=== PATIENT | male | born 1980 | race African-American/Black ===

== ENCOUNTER 2020-09-21 21:30 | Emergency (ER) | payer SELFPAY ==
[~2020-09-21] VITALS: Ht 190.5 cm; Wt 69.0 kg
[~2020-09-21 21:30] MED LIST: ARIP15TA3 PO; ARIP2TAB2 PO; ESCI10TA10 PO; RISP0.2518 PO; RISP2TAB35 PO; SERT50TA PO; SERT50TA28 PO
--- NOTE | 2020-09-21 22:00 | NUR ---
patient reporting "body fevers and sometimes head fevers" but states he has not taken his temperature at home with a thermometer and reports "my skin just feels hot sometimes so i take a cold shower". patient also reports "i drink heavily every single day, like a lot, like 3 bottle of vodka a day and i think i have a large JORGE A". RN questioned what he meant by this statement and he reports "i think i have a large blood alcohol content". patient reports last drink was 2 days ago. patient has no CIWA scoring criteria. student MD to bedside. call juana in reach. safety maintained.
--- NOTE | 2020-09-21 22:59 | NUR ---
patient resting in bed in NAD. call arias in reach. pending lab work. will continue to monitor.
[2020-09-21 23:03] LABS: ALANINE AMINOTRANSFERASE 39 U/L (12-78); ALBUMIN 3.7 g/dL (3.4-5.0); ANION GAP 9 mmol/L (5-15); CALCIUM 8.5 mg/dL (8.5-10.1); CHLORIDE 103 mmol/L (98-107); CREATININE 0.82 mg/dL (0.7-1.3)
[2020-09-21 23:04] LABS: ALKALINE PHOSPHATASE 61 U/L (45-117); BASOPHILS % (AUTO) 1 % (0-1); BILIRUBIN,TOTAL 1.1 mg/dL (0.2-1.0); EOSINOPHILS % (AUTO) 1 % (1-7); LYMPHOCYTES % (AUTO) 28 % (22-44); MEAN CORPUSCULAR HEMOGLOBIN 33.1 pg (27.5-34.5); MEAN CORPUSCULAR HGB CONC 34.8 g/dL (33.2-36.2); MEAN PLATELET VOLUME 7.6 fL (7.4-10.4); MONOCYTES % (AUTO) 10 % (2-9); NEUTROPHILS % (AUTO) 60 % (42-75); PLATELET COUNT 196 x10^3/uL (130-400); RED BLOOD COUNT 4.58 x10^6/uL (4.38-5.82); RED CELL DISTRIBUTION WIDTH 13.5 % (9.4-14.8); TOTAL PROTEIN 7.1 g/dL (6.4-8.2)
[2020-09-21 23:05] LABS: MD NO
--- NOTE | 2020-09-21 23:28 | NUR ---
discharge instructions reviewed with patient. no further questions. addiction and behavioral facilities info resource sheets provided to patient and reviewed. no IV placed during ER visit. all personal belongings with patient on dc. steady gait to lobby
[2020-09-21 23:29] VITALS: BP 139/81
== END 2020-09-21 23:35 | disposition home or self-care (01) ==
LOC: ED 23:31
DX: R10.84 Generalized abdominal pain (principal); R50.9 Fever, unspecified; R53.83 Other fatigue; F17.210 Nicotine dependence, cigarettes, uncomplicated
CPT/HCPCS: 36415; 80053; 80320; 83690; 85025; 99283; 99406; G0480

== ENCOUNTER 2020-11-08 04:25 | Emergency (ER) | payer MEDICAID, OTHER ==
[~2020-11-08] VITALS: Ht 190.5 cm; Wt 68.0 kg
[2020-11-08 05:27] LABS: BASOPHILS % (AUTO) 1 % (0-1); EOSINOPHILS % (AUTO) 1 % (1-7); LYMPHOCYTES % (AUTO) 20 % (22-44); MEAN CORPUSCULAR HEMOGLOBIN 33.3 pg (27.5-34.5); MEAN CORPUSCULAR HGB CONC 34.9 g/dL (33.2-36.2); MEAN PLATELET VOLUME 7.3 fL (7.4-10.4); MONOCYTES % (AUTO) 10 % (2-9); NEUTROPHILS % (AUTO) 68 % (42-75); PLATELET COUNT 245 x10^3/uL (130-400); RED BLOOD COUNT 4.85 x10^6/uL (4.38-5.82); RED CELL DISTRIBUTION WIDTH 13.8 % (9.4-14.8)
[2020-11-08 05:32] LABS: MD NO
[2020-11-08 05:36] LABS: ANION GAP 9 mmol/L (5-15); CHLORIDE 103 mmol/L (98-107); CREATININE 0.89 mg/dL (0.7-1.3)
[2020-11-08] MEDS ORDERED: ONDANSETRON ODT 4 MG ONE (05:57)
[2020-11-08] MEDS ORDERED: ONDANSETRON ODT 4 MG PO ONE (06:00)
--- NOTE | 2020-11-08 06:06 | NUR ---
PT RESTING IN BED. PT ON MONITOR WITH VSS. PT MEDICATED PER MAR. PT DENIED ANY CURRENT NEEDS OR WANTS.
--- NOTE | 2020-11-08 07:00 | NUR ---
ASSUMING CARE OF PATIENT. REPORT FROM NOMAN NAVARRO RN. PT ASLEEP WITH EVEN AND UNLABORED RESPIRATIONS. VSS. CANTU. PT TO BE D/C
[2020-11-08 07:22] VITALS: BP 138/77
== END 2020-11-08 07:25 | disposition home or self-care (01) ==
LOC: ED 06:00
DX: R11.2 Nausea with vomiting, unspecified (principal); R05 Cough; Z20.822 Contact with and (suspected) exposure to COVID-19
CPT/HCPCS: 36415; 71045; 80048; 82040; 85025; 99284; Q0162; U0003